=== PATIENT | female | born 1990 | race Two or more races ===

== ENCOUNTER → 2022-02-21 | Outpatient (CLI) | payer MEDICAID ==
[2022-02-21 09:21] LABS: Basophils # (auto) 0 10 ^3/uL (0-0.2); Basophils % (auto) 0.4 % (0.0-2.0); Eosinophils # (auto) 0 10 ^3/uL (0-0.8); Eosinophils % (auto) 0.6 % (0.0-7.0); Hematocrit 39.8 % (36.0-46.0); Hemoglobin 13.2 g/dL (12.2-16.2); Lymphocytes # (auto) 0.8 10 ^3/uL (0.4-5.4); Lymphocytes % (auto) 13.8 % (10.0-50.0); Mean Corpuscular Hemoglobin 28.4 pg (28.0-32.0); Mean Corpuscular Hgb Conc. 33.2 g/dL (32.0-36.0); Mean Corpuscular Volume 85.7 fL (80.0-100.0); Monocytes # (auto) 0.3 10 ^3/uL (0-1.3); Neutrophils # (auto) 4.7 10 ^3/uL (1.6-8.6); Neutrophils % (auto) 80.2 % (37.0-80.0); Red Blood Cells 4.64 10^6/uL (4.0-5.20); Red Cell Distribution Width 13.5 % (11.8-14.3); White Blood Cell 5.8 10^3/uL (4.4-10.8)
[2022-02-21 11:00] LABS: Alcohol, Urine < 3.0 mg/dL (0-10); Amphetamine Screen, Urine NEGATIVE (NEGATIVE); Barbiturate Scree,Urine NEGATIVE (NEGATIVE); Benzodiazephine Screen, Urine NEGATIVE (NEGATIVE); Cannabinoid Screen, Urine NEGATIVE (NEGATIVE); Cocaine Screen, Urine NEGATIVE (NEGATIVE); Opiate Scree,Urine NEGATIVE (NEGATIVE); Phencyclidine Screen, Urine NEGATIVE (NEGATIVE)
[2022-02-22 07:06] LABS: RPR Non Reactive (Non Reactive)
== END | disposition home or self-care (01) ==
LOC: LAB 08:46
PROVIDERS: ATTEND Obstetrics & Gynecology
DX: Z34.80 Encounter for supervision of other normal pregnancy, unspecified trimester (principal); Z31.430 Encounter of female for testing for genetic disease carrier status for procreative management; Z36.0 Encounter for antenatal screening for chromosomal anomalies
CPT/HCPCS: 36415; 80307; 83036; 84702; 85025; 86592; 86703; 86762; 86850; 86900; 86901; 87086; 87340

== ENCOUNTER → 2022-03-14 | Outpatient (CLI) | payer MEDICAID | END | disposition home or self-care (01) | LOC: LAB 11:17 | PROVIDERS: ATTEND Obstetrics & Gynecology | DX: Z34.80 Encounter for supervision of other normal pregnancy, unspecified trimester (principal); Z3A.00 Weeks of gestation of pregnancy not specified | CPT/HCPCS: 87086 ==

== ENCOUNTER → 2022-05-02 | Outpatient (CLI) | payer MEDICAID ==
[2022-05-02 08:01] LABS: Basophils # (auto) 0 10 ^3/uL (0-0.2); Basophils % (auto) 0.4 % (0.0-2.0); Eosinophils # (auto) 0.1 10 ^3/uL (0-0.8); Eosinophils % (auto) 0.9 % (0.0-7.0); Hematocrit 35.3 % (36.0-46.0); Hemoglobin 12.5 g/dL (12.2-16.2); Lymphocytes # (auto) 1.2 10 ^3/uL (0.4-5.4); Lymphocytes % (auto) 16.2 % (10.0-50.0); Mean Corpuscular Hemoglobin 30.3 pg (28.0-32.0); Mean Corpuscular Hgb Conc. 35.5 g/dL (32.0-36.0); Mean Corpuscular Volume 85.4 fL (80.0-100.0); Monocytes # (auto) 0.4 10 ^3/uL (0-1.3); Monocytes % (auto) 5.9 % (0.0-12.0); Neutrophils # (auto) 5.6 10 ^3/uL (1.6-8.6); Neutrophils % (auto) 76.6 % (37.0-80.0); Red Blood Cells 4.13 10^6/uL (4.0-5.20); Red Cell Distribution Width 14.3 % (11.8-14.3); White Blood Cell 7.4 10^3/uL (4.4-10.8)
== END | disposition home or self-care (01) ==
LOC: LAB 07:40
PROVIDERS: ATTEND Obstetrics & Gynecology
DX: Z34.80 Encounter for supervision of other normal pregnancy, unspecified trimester (principal); Z3A.00 Weeks of gestation of pregnancy not specified
CPT/HCPCS: 36415; 82951; 83036; 85025

== ENCOUNTER 2022-06-11 08:07 | Observation (INO) | payer MEDICAID ==
[~2022-06-11 08:07] MED LIST: PREN-96 PO
== END 2022-06-11 10:58 | disposition home or self-care (01) ==
LOC: LDRP 09:06 → UNDOADMOB 09:06 → LDRP 09:49 → UNDODISOB 10:58
PROVIDERS: ADMIT Obstetrics & Gynecology Obstetrics; ATTEND Obstetrics & Gynecology Obstetrics
DX: O24.419 Gestational diabetes mellitus in pregnancy, unspecified control (principal); Z3A.33 33 weeks gestation of pregnancy
CPT/HCPCS: 59025; 76818; 81002; 82948; 82962; 94760; G0378

== ENCOUNTER 2022-06-15 09:20 | Observation (INO) | payer MEDICAID ==
[~2022-06-15] VITALS: Ht 167.6 cm; Wt 60.8 kg
== END 2022-06-15 10:42 | disposition home or self-care (01) ==
LOC: LDRP 09:20 → UNDOADMOB 09:20 → LDRP 10:28
PROVIDERS: ADMIT Obstetrics & Gynecology; ATTEND Obstetrics & Gynecology
DX: O24.419 Gestational diabetes mellitus in pregnancy, unspecified control (principal); Z3A.33 33 weeks gestation of pregnancy
CPT/HCPCS: 59025; 76818; 81002; 82948; 82962; 94760; G0378

== ENCOUNTER 2022-06-19 11:12 | Observation (INO) | payer MEDICAID ==
[~2022-06-19] VITALS: Ht 167.6 cm; Wt 60.8 kg
== END 2022-06-19 12:30 | disposition home or self-care (01) ==
LOC: UNDOADMOB 11:12 → LDRP 11:12 → UNDODISOB 12:30
PROVIDERS: ADMIT Obstetrics & Gynecology; ATTEND Obstetrics & Gynecology
DX: O24.419 Gestational diabetes mellitus in pregnancy, unspecified control (principal); Z3A.34 34 weeks gestation of pregnancy
CPT/HCPCS: 59025; 76818; 81002; 82948; 82962; G0378

== ENCOUNTER 2022-06-21 11:09 | Observation (INO) | payer MEDICAID ==
[2022-06-21] MEDS ORDERED: METF-370 PO (12:36)
== END 2022-06-21 12:48 | disposition home or self-care (01) ==
LOC: UNDOADMOB 11:09 → LDRP 11:09 → UNDODISOB 12:48
PROVIDERS: ADMIT Obstetrics & Gynecology; ATTEND Obstetrics & Gynecology
DX: O24.419 Gestational diabetes mellitus in pregnancy, unspecified control (principal); Z3A.34 34 weeks gestation of pregnancy
CPT/HCPCS: 59025; 76818; 81002; 82948; 82962; 94760; G0378

== ENCOUNTER 2022-06-26 08:47 | Observation (INO) | payer MEDICAID ==
[~2022-06-26 08:47] MED LIST changes: +METF-370 PO
== END 2022-06-26 13:45 | disposition home or self-care (01) ==
LOC: LDRP 12:52 → UNDOADMOB 12:52 → LDRP 12:54
PROVIDERS: ADMIT Obstetrics & Gynecology; ATTEND Obstetrics & Gynecology
DX: O24.419 Gestational diabetes mellitus in pregnancy, unspecified control (principal); Z3A.35 35 weeks gestation of pregnancy
CPT/HCPCS: 59025; 76818; 81002; 82948; 82962; G0378

== ENCOUNTER → 2022-06-27 | Outpatient (CLI) | payer MEDICAID ==
[2022-06-27 08:50] LABS: Basophils # (auto) 0 10 ^3/uL (0-0.2); Basophils % (auto) 0.5 % (0.0-2.0); Eosinophils # (auto) 0 10 ^3/uL (0-0.8); Eosinophils % (auto) 0.7 % (0.0-7.0); Hematocrit 34.8 % (36.0-46.0); Hemoglobin 11.7 g/dL (12.2-16.2); Lymphocytes # (auto) 0.9 10 ^3/uL (0.4-5.4); Lymphocytes % (auto) 15.1 % (10.0-50.0); Mean Corpuscular Hemoglobin 28.4 pg (28.0-32.0); Mean Corpuscular Hgb Conc. 33.7 g/dL (32.0-36.0); Mean Corpuscular Volume 84.1 fL (80.0-100.0); Monocytes # (auto) 0.3 10 ^3/uL (0-1.3); Monocytes % (auto) 5.7 % (0.0-12.0); Neutrophils # (auto) 4.8 10 ^3/uL (1.6-8.6); Nucleated Red Blood Cells % 0.1 %; Red Blood Cells 4.14 10^6/uL (4.0-5.20); Red Cell Distribution Width 13.1 % (11.8-14.3); White Blood Cell 6.1 10^3/uL (4.4-10.8)
[2022-06-28 05:07] LABS: RPR Non Reactive (Non Reactive)
== END | disposition home or self-care (01) ==
LOC: LAB 08:32
PROVIDERS: ATTEND Obstetrics & Gynecology
DX: Z34.00 Encounter for supervision of normal first pregnancy, unspecified trimester (principal); Z3A.00 Weeks of gestation of pregnancy not specified
CPT/HCPCS: 36415; 84112; 85025; 86592

== ENCOUNTER 2022-06-29 07:53 | Observation (INO) | payer MEDICAID | END 2022-06-29 12:35 | disposition home or self-care (01) | LOC: LDRP 11:28 → UNDOADMOB 11:28 → LDRP 11:34 | PROVIDERS: ADMIT Obstetrics & Gynecology; ATTEND Obstetrics & Gynecology | DX: O24.415 Gestational diabetes mellitus in pregnancy, controlled by oral hypoglycemic drugs (principal); Z3A.35 35 weeks gestation of pregnancy | CPT/HCPCS: 59025; 76818; 81002; 82948; 82962; 94760; G0378 ==

== ENCOUNTER 2022-07-03 13:18 | Observation (INO) | payer MEDICAID | END 2022-07-03 14:35 | disposition home or self-care (01) | LOC: UNDOADMOB 13:18 → LDRP 13:18 | PROVIDERS: ADMIT Obstetrics & Gynecology; ATTEND Obstetrics & Gynecology | DX: O24.419 Gestational diabetes mellitus in pregnancy, unspecified control (principal); Z3A.36 36 weeks gestation of pregnancy | CPT/HCPCS: 59025; 76818; 81002; 82948; 82962; G0378 ==

== ENCOUNTER 2022-07-06 09:48 | Observation (INO) | payer MEDICAID | END 2022-07-06 10:42 | disposition home or self-care (01) | LOC: LDRP 09:48 → UNDOADMOB 09:48 → LDRP 10:03 | PROVIDERS: ADMIT Obstetrics & Gynecology; ATTEND Obstetrics & Gynecology | DX: O24.419 Gestational diabetes mellitus in pregnancy, unspecified control (principal); Z3A.37 37 weeks gestation of pregnancy | CPT/HCPCS: 59025; 76818; 81002; 82948; 82962; G0378 ==

== ENCOUNTER 2022-07-10 09:04 | Observation (INO) | payer MEDICAID | END 2022-07-10 15:52 | disposition home or self-care (01) | LOC: UNDOADMOB 14:00 → LDRP 14:00 | PROVIDERS: ADMIT Obstetrics & Gynecology; ATTEND Obstetrics & Gynecology | DX: O24.419 Gestational diabetes mellitus in pregnancy, unspecified control (principal); O62.9 Abnormality of forces of labor, unspecified; Z3A.37 37 weeks gestation of pregnancy | CPT/HCPCS: 59025; 76818; 81002; 82948; 82962; 94760; G0378 ==

== ENCOUNTER 2022-07-13 12:32 | Observation (INO) | payer MEDICAID | END 2022-07-13 16:02 | disposition home or self-care (01) | LOC: LDRP 14:17 | PROVIDERS: ADMIT Obstetrics & Gynecology; ATTEND Obstetrics & Gynecology | DX: O24.419 Gestational diabetes mellitus in pregnancy, unspecified control (principal); Z3A.37 37 weeks gestation of pregnancy | CPT/HCPCS: 59025; 76818; 81002; 82948; 82962; 94760; G0378 ==

== ENCOUNTER 2022-07-17 14:10 | Observation (INO) | payer MEDICAID | END 2022-07-17 15:18 | disposition home or self-care (01) | LOC: UNDOADMOB 14:10 → LDRP 14:10 | PROVIDERS: ADMIT Obstetrics & Gynecology; ATTEND Obstetrics & Gynecology | DX: O24.419 Gestational diabetes mellitus in pregnancy, unspecified control (principal); O62.9 Abnormality of forces of labor, unspecified; Z3A.38 38 weeks gestation of pregnancy | CPT/HCPCS: 59025; 76818; 81002; 82948; 82962; 94760; G0378 ==

== ENCOUNTER 2022-07-20 14:00 | Observation (INO) | payer MEDICAID | END 2022-07-20 15:33 | disposition home or self-care (01) | LOC: LDRP 14:00 → UNDOADMOB 14:00 → LDRP 14:38 → UNDODISOB 15:33 | PROVIDERS: ADMIT Obstetrics & Gynecology; ATTEND Obstetrics & Gynecology | DX: O24.419 Gestational diabetes mellitus in pregnancy, unspecified control (principal); Z3A.38 38 weeks gestation of pregnancy | CPT/HCPCS: 59025; 76818; 81002; 82962; G0378 ==

== ENCOUNTER 2022-07-22 08:00 | Inpatient (IN) | payer MEDICAID ==
[~2022-07-22] VITALS: Ht 167.6 cm; Wt 62.6 kg
[2022-07-22] MEDS ORDERED: PENICILLIN G POT 5MIL/D5 50ML 50 ML IV ONE (08:15)
[2022-07-22] MEDS ORDERED: LACT. RINGERS/OXYTOCIN 20UNITS 500 ML IV ONE ×2 (08:15→08:45)
[2022-07-22] MEDS ORDERED: PROMETHAZINE HCL 25 MG/ML 1ML IV PRN (08:15)
[2022-07-22] MEDS ORDERED: LIDOCAINE 2%HCL (LOCAL ANESTH.) INJ 20ML MDV IJ PRN (08:15)
[2022-07-22] MEDS ORDERED: BUTORPHANOL TARTRATE 2 MG/1 ML VIAL IV PRN ×2 (08:15)
[2022-07-22 08:40] LABS: Basophils # (auto) 0 10 ^3/uL (0-0.2); Basophils % (auto) 0.6 % (0.0-2.0); Eosinophils # (auto) 0 10 ^3/uL (0-0.8); Eosinophils % (auto) 0.6 % (0.0-7.0); Hematocrit 36.1 % (36.0-46.0); Lymphocytes # (auto) 0.9 10 ^3/uL (0.4-5.4); Lymphocytes % (auto) 15.7 % (10.0-50.0); Mean Corpuscular Hemoglobin 27.2 pg (28.0-32.0); Mean Corpuscular Hgb Conc. 33.3 g/dL (32.0-36.0); Mean Corpuscular Volume 81.8 fL (80.0-100.0); Monocytes # (auto) 0.2 10 ^3/uL (0-1.3); Neutrophils # (auto) 4.7 10 ^3/uL (1.6-8.6); Neutrophils % (auto) 79.1 % (37.0-80.0); Nucleated Red Blood Cells % 0.9 %; Red Blood Cells 4.42 10^6/uL (4.0-5.20); Red Cell Distribution Width 13.8 % (11.8-14.3); White Blood Cell 5.9 10^3/uL (4.4-10.8)
[2022-07-22] MEDS: LACTATED RINGER'S 1,000 ML IV SCH ×2 (08:53→16:42)
[2022-07-22 08:54] LABS: INR 0.91 (0.9-1.15); Partial Thromboplastin Time 25.2 sec (24.6-33.4)
[2022-07-22 08:57] LABS: Alcohol, Urine < 3.0 mg/dL (0-10); Amphetamine Screen, Urine NEGATIVE (NEGATIVE); Barbiturate Scree,Urine NEGATIVE (NEGATIVE); Benzodiazephine Screen, Urine NEGATIVE (NEGATIVE); Cannabinoid Screen, Urine NEGATIVE (NEGATIVE); Cocaine Screen, Urine NEGATIVE (NEGATIVE); Opiate Scree,Urine NEGATIVE (NEGATIVE); Phencyclidine Screen, Urine NEGATIVE (NEGATIVE)
[2022-07-22 08:58] LABS: Albumin 2.8 g/dL (3.4-5.0); BUN/Creatinine Ratio 16.7; Calcium 8.9 mg/dL (8.5-10.1); Potassium 3.6 mmol/L (3.5-5.1)
[2022-07-22 09:01] LABS: Bilirubin, Total 0.2 mg/dL (0.2-1.0)
[2022-07-22 09:05] LABS: Urine Bacteria FEW /hpf (None Seen); Urine Blood Negative /uL (Negative); Urine Specific Gravity 1.014 (1.001-1.035); Urine WBC 48 /hpf (0 - 5)
[2022-07-22] MEDS: miSOPROStol 50 MCG per PRE-CUT 1/2 TAB PO PRN ×3 (09:24→19:28)
[2022-07-22] MEDS: PENICILLIN G POTASSIUM 2,500,000 UNITS in D5W 5% 50 ML IV SCH ×3 (13:46→22:39)
[2022-07-23] MEDS: miSOPROStol 50 MCG per PRE-CUT 1/2 TAB PO PRN (00:42)
[2022-07-23] MEDS: PENICILLIN G POTASSIUM 2,500,000 UNITS in D5W 5% 50 ML IV SCH ×2 (02:11→06:07)
[2022-07-23] MEDS: DERMOPLAST 60ML BOTTLE TOP PRN ×2 (03:14→13:34)
[2022-07-23] MEDS: PHISODERM TOP SOLN 240ML BTL TOP PRN ×2 (03:15→13:34)
[2022-07-23] MEDS: WITCH HAZEL-GLYCERIN PAD TOP PRN ×2 (03:15→13:35)
[2022-07-23] MEDS: LACTATED RINGER'S 1,000 ML IV SCH ×2 (03:16→09:05)
[2022-07-23] MEDS ORDERED: PENICILLIN G POT 5MILLION UNIT VIAL ONE (03:30)
[2022-07-23] MEDS ORDERED: LACT. RINGERS/OXYTOCIN 20UNITS 1,000 ML IV SCH (04:30)
[2022-07-23] MEDS ORDERED: LACT. RINGERS/OXYTOCIN 20UNITS 500 ML IV ONE ×2 (04:30→05:00)
[2022-07-23] MEDS ORDERED: TERBUTALINE SULFATE 1 MG/ML 1ML VIAL SC PRN (04:30)
[2022-07-23] MEDS ORDERED: fentaNYL CITRATE 100 MCG/2 ML VL IV ONE (04:45)
[2022-07-23] MEDS ORDERED: ePHEDrine SULFATE 50 MG/ML AMP IV ONE (04:45)
[2022-07-23] MEDS ORDERED: LACTATED RINGER'S 1,000 ML IV ONE (04:45)
[2022-07-23] MEDS ORDERED: LIDOCAINE HCL 2 %PF INJ 10ML AMP IJ ONE (04:45)
[2022-07-23] MEDS ORDERED: ROPIVACAINE HCL 200 ML EPI SCH (04:45)
[2022-07-23] MEDS ORDERED: NALOXONE HCL 0.4 MG/ML VIAL IV ONE (04:45)
[2022-07-23] MEDS ORDERED: METHYLERGONOVINE MALEATE 0.2 MG/ML AMP IM ONE (10:00)
[2022-07-23] MEDS ORDERED: miSOPROStol 100 mcg TAB ONE (11:09)
[2022-07-23] MEDS ORDERED: miSOPROStol 100 mcg TAB SL PRN (11:15)
[2022-07-23] MEDS ORDERED: ONDANSETRON ODT 4 MG TAB PO PRN (12:30)
[2022-07-23] MEDS ORDERED: ACETAMINOPHEN 325 MG TAB PO PRN (12:30)
[2022-07-23] MEDS: ceFAZolin 1GM/50ML 50 ML IV SCH ×2 (13:35→21:57)
[2022-07-23 19:15] VITALS: BP 119/77
[2022-07-23] MEDS: IBUPROFEN 600 MG TAB PO PRN (20:49)
[2022-07-23] MEDS: DOCUSATE SOD 100 MG CAP PO SCH (21:58)
[2022-07-23 23:05] VITALS: BP 112/62
[2022-07-24 03:06] VITALS: BP 111/67
[2022-07-24] MEDS: IBUPROFEN 600 MG TAB PO PRN ×3 (05:29→22:16)
[2022-07-24 06:07] LABS: RPR Non Reactive (Non Reactive)
[2022-07-24] MEDS: ceFAZolin 1GM/50ML 50 ML IV SCH (06:20)
[2022-07-24 07:10] VITALS: BP 119/73
[2022-07-24 10:50] VITALS: BP 114/69
[2022-07-24 15:00] VITALS: BP 116/67
[2022-07-24 19:00] VITALS: BP 121/80
[2022-07-24] MEDS: DOCUSATE SOD 100 MG CAP PO SCH (22:00)
[2022-07-24 23:00] VITALS: BP 118/64
[2022-07-25 03:00] VITALS: BP 99/56
[2022-07-25 06:32] VITALS: BP 115/73
[2022-07-25] MEDS: IBUPROFEN 600 MG TAB PO PRN (10:08)
[2022-07-25 10:32] VITALS: BP 129/79
== END 2022-07-25 13:08 | disposition home or self-care (01) | DRG 560 ==
LOC: LDRP 08:00
PROVIDERS: ADMIT Obstetrics & Gynecology; ATTEND Obstetrics & Gynecology
PROC: 10E0XZZ Delivery of Products of Conception, External Approach (ICD-10-PCS; principal; 2022-07-23)
PROC: 0KQM0ZZ Repair Perineum Muscle, Open Approach (ICD-10-PCS; 2022-07-23)
PROC: 3E0R3BZ Introduction of Anesthetic Agent into Spinal Canal, Percutaneous Approach (ICD-10-PCS; 2022-07-23)
PROC: 00HU33Z Insertion of Infusion Device into Spinal Canal, Percutaneous Approach (ICD-10-PCS; 2022-07-23)
DX: O24.429 Gestational diabetes mellitus in childbirth, unspecified control (principal); Z37.0 Single live birth; O69.81X0 Labor and delivery complicated by cord around neck, without compression, not applicable or unspecified; Z20.822 Contact with and (suspected) exposure to COVID-19; Z3A.39 39 weeks gestation of pregnancy; O70.1 Second degree perineal laceration during delivery
CPT/HCPCS: 36415; 59025; 62282; 80053; 80307; 81001; 81002; 82948; 82962; 85025; 85610; 85730; 86592; 86850; 86900; 86901; 87426; 94760; 94762; 96360; 96361; 96374; G0378; J0690; J2540; J2590; J7060

== ENCOUNTER → 2024-07-24 | Outpatient (CLI) | payer MEDICAID | END | disposition home or self-care (01) | LOC: LAB 09:07 | PROVIDERS: ATTEND Obstetrics & Gynecology | DX: Z34.80 Encounter for supervision of other normal pregnancy, unspecified trimester (principal) | CPT/HCPCS: 36415; 84144; 84702 ==

== ENCOUNTER → 2024-08-04 | Outpatient (CLI) | payer SELFPAY | END | disposition home or self-care (01) | LOC: LAB 09:27 | PROVIDERS: ATTEND Obstetrics & Gynecology | DX: Z34.00 Encounter for supervision of normal first pregnancy, unspecified trimester (principal) | CPT/HCPCS: 36415; 84702 ==

== ENCOUNTER 2025-03-09 08:44 | Outpatient (CLI) | payer SELFPAY ==
[2025-03-09 10:03] LABS: Hematocrit 38.6 % (36.0-46.0); Hemoglobin 13.1 g/dL (12.2-16.2); Mean Corpuscular Hemoglobin 29.3 pg (28.0-32.0); Mean Corpuscular Volume 86.3 fL (80.0-100.0); Nucleated Red Blood Cells % 0.1 %
[2025-03-09 10:56] LABS: Alanine Aminotransferase 17 U/L (7-40); Anion Gap 11 (5-15); Calcium 9.2 mg/dL (8.7-10.4); Carbon Dioxide 23 mmol/L (20-31); Chloride 104 mmol/L (98-107); Potassium 4.0 mmol/L (3.5-5.1); Sodium 138 mmol/L (136-145)
[2025-03-09 10:58] LABS: Glucose 92 mg/dL (74-106); Total Protein 7.7 g/dL (5.7-8.2)
[2025-03-09 11:00] LABS: Albumin 4.6 g/dL (3.2-4.8); Bilirubin, Total 0.3 mg/dL (0.2-1.0)
[2025-03-09 11:01] LABS: BUN/Creatinine Ratio 9.1 (10.0-20.0); Blood Urea Nitrogen < 5 mg/dL (9-23)
[2025-03-09 11:02] LABS: Amphetamine Screen, Urine Neg (NEGATIVE); Barbiturate Scree,Urine Neg (NEGATIVE); Benzodiazephine Screen, Urine Neg (NEGATIVE); Beta HCG, Quantitative 131604.8 mIU/mL (1.5-4.2); Cocaine Screen, Urine Neg (NEGATIVE); Opiate Scree,Urine Neg (NEGATIVE)
[2025-03-09 11:05] LABS: Cannabinoid Screen, Urine Neg (NEGATIVE); Phencyclidine Screen, Urine Neg (NEGATIVE)
[2025-03-09 11:10] LABS: Alkaline Phosphatase 37 U/L (46-116)
[2025-03-09 11:50] LABS: Thyroid Stimulating Hormone 0.59 uIU/mL (0.55-4.78)
[2025-03-11 03:07] LABS: Chlamydia Trachomatis, NAA Negative (Negative); Neisseria gonorrhoeae, NAA Negative (Negative)
== END 2025-03-09 17:00 | disposition home or self-care (01) ==
LOC: LAB 08:44
PROVIDERS: ATTEND Obstetrics & Gynecology
DX: O26.899 Other specified pregnancy related conditions, unspecified trimester (principal); N93.0 Postcoital and contact bleeding; E78.2 Mixed hyperlipidemia; Z11.3 Encounter for screening for infections with a predominantly sexual mode of transmission; Z11.2 Encounter for screening for other bacterial diseases; Z3A.00 Weeks of gestation of pregnancy not specified; Z79.899 Other long term (current) drug therapy
CPT/HCPCS: 36415; 80053; 80307; 83036; 84439; 84443; 84702; 85025; 86703; 86762; 86780; 86787; 86850; 86900; 86901; 87086; 87340